=== PATIENT | male | born 1995 | race Caucasian/White ===

== ENCOUNTER 2018-08-24 19:00 | Observation (INO) | payer BC ==
[2018-08-24] MEDS ORDERED: ALUM & MAG HYDROX-SIMETHICONE 30 ML, LIDOCAINE VISCOUS 2% 15 ML PO ONE ×2 (19:23)
[2018-08-24] MEDS ORDERED: ASPIRIN TABLET 325 MG TAB PO ONE (19:23)
[2018-08-24] MEDS ORDERED: ALUM & MAG HYDROX-SIMETHICONE 30 ML UD ONE (19:24)
[2018-08-24] MEDS ORDERED: LIDOCAINE HCL 2% (MOUTH-THROAT) 15 ML UD ONE (19:24)
--- NOTE | 2018-08-24 19:36 | RAD ---
EXAM DESCRIPTION: Chest,2 Views CLINICAL HISTORY: left chest pain COMPARISON: None. FINDINGS: Two views of the chest are submitted. Cardiac silhouette appears normal. No focal parenchymal or pleural disease. No acute bony abnormality. There is no significant pulmonary vascular engorgement. IMPRESSION: No evidence of acute cardiopulmonary disease. Electronically signed by: Frank Purvis 08/24/2018 7:35 PM MUSIC LIBRARIAN
[2018-08-24] MEDS ORDERED: POTASSIUM CHLORIDE ELIXIR 20 MEQ/15 ML UD PO ONE (20:34)
[2018-08-24] MEDS ORDERED: ACETAMINOPHEN 325 MG TAB PO ONE (20:40)
[2018-08-24] MEDS ORDERED: SUCRALFATE 1 GM/10 ML 1 GM UD PO ONE (20:40)
[2018-08-24] MEDS ORDERED: NITROGLYCERIN 0.4 MG 25 EA TAB SL ONE (21:35)
--- NOTE | 2018-08-24 21:45 | ED.PDOC ---
History of Present Illness - General Chief Complaint: Chest Pain/OR Stated Complaint: tightness in chest Time Seen by Provider: 08/24/18 19:07 Source: patient Exam Limitations: no limitations - History of Present Illness Initial Comments: the patient's a 23-year-old male presenting to the emergency room secondary to some mild chest discomfort and tightness starting approximately 5 hours prior to arrival. 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 Nothing seems to make it better or worse. Movement does not affect it. Aerobic exertion does not affect it. Palpation is not affected. He has not had a runny nose, cough sore throat or fever. No history of any DVT and no swelling in his legs or pain in his legs. No history of any heart problems. No family history of any early heart issues. He does not use any drugs. He is pleasant and cooperative and does not really appear to be in much distress. Discomfort is a 3 or 4 at worst. No history of any bad heartburn issues. No new medications. No history of any thyroid problems. No history of any serious infections. No known history of any diabetes. Timing/Duration: 4-6 hours Severity: mild Improving Factors: nothing Worsening Factors: nothing Associated Symptoms: chest pain Allergies/Adverse Reactions: Allergies NO KNOWN ALLERGY Allergy (Verified 08/24/18 19:16) Home Medications: Ambulatory Orders NK [NK] 08/24/18 Review of Systems - Review of Systems Constitutional: States: no symptoms reported EENTM: States: no symptoms reported Respiratory: States: short of breath - very mild Cardiology: States: chest pain Gastrointestinal/Abdominal: States: no symptoms reported Genitourinary: States: no symptoms reported Musculoskeletal: States: no symptoms reported Skin: States: no symptoms reported Neurological: States: no symptoms reported Endocrine: States: no symptoms reported All other Systems: No Change from Baseline Past Medical History (General) - Patient Medical History Hx Diabetes: No Surgical History: no surgical history - Vaccination History Hx Influenza Vaccination: No - Triage Comment ED Triage Comment: Feels tightness in chest since around 2-3 this afternoon Family Medical History - Family History Father Family History: Unknown Physical Exam - Physical Exam General Appearance: Alert, Comfortable, No apparent distress Ears, Nose, Throat: hearing grossly normal, normal ENT inspection Neck: full range of motion, supple Respiratory: lungs clear, normal breath sounds, no respiratory distress, no accessory muscle use Cardiovascular/Chest: normal peripheral pulses, regular rate, rhythm, no edema Peripheral Pulses: radial,right: 2+, radial,left: 2+, dorsalis pedis,right: 2+, dorsalis pedis,left: 2+ Gastrointestinal/Abdominal: non tender, soft Rectal Exam: deferred Back Exam: normal inspection, no CVA tenderness, no vertebral tenderness Extremity: normal range of motion, non-tender, normal inspection, no pedal edema , no calf tenderness, normal capillary refill 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, alert, normal mood/affect, oriented x 3 Skin Exam: normal color Comments: Vital Signs - 24 hr 08/24/18 08/24/18 08/24/18 19:13 19:16 20:00 Temperature 98.5 F Pulse Rate [ 124 H 124 H 110 H Right] Respiratory 16 16 16 Rate Blood Pressure 139/90 126/94 [Left Arm] O2 Sat by Pulse 99 99 Oximetry 08/24/18 21:00 Temperature Pulse Rate [ 114 H Right] Respiratory 18 Rate Blood Pressure 122/73 [Left Arm] O2 Sat by Pulse 97 Oximetry Progress - Progress Progress: 08/24/18 21:47 the patient is a 23-year-old male presenting to the emergency room secondary to mild chest discomfort with mild associated shortness of breath. Laboratory work , EKG and chest x-ray are really only significant for mild hypokalemia and a moderate sinus tachycardia. it is unknown if the sinus tachycardia is a long- standing issue or not. The patient has been dosed with some potassium. He has been given GI medications. Symptoms have improved somewhat. Initial set of cardiac enzymes are negative. Initial d-dimer is negative. TSH is normal. The patient is going to receive a liter of IV fluids to see if this improves the sinus tachycardia. His blood sugar is mildly elevated and an A1c at a further lab draw may be warranted along possibly with an esr and maybe a repeat d-dimer. At this point in time I'm uncertain why he is having some chest discomfort and some sinus tachycardia. his age and lack of personal medical history or significant family history make coronary artery disease significantly less likely. Monitor overnight. A source may make itself evident. Repeat heart enzymes. The patient has received aspirin, GI medications and a dose of nitroglycerin, along with the potassium and IV fluids. - Results/Orders Results/Orders: chest x-ray shows no evidence of any acute pathology. No widening of the mediastinum. No pneumothorax. EKG shows sinus tachycardia rate of [address] segment or T-wave changes at the moment for ischemia. Normal axis. Normal R-wave progression. Telemetry monitoring has shown no evidence of any other arrhythmia. Laboratory Tests 08/24/18 08/24/18 08/24/18 19:22 19:38 19:38 WBC 10.0 RBC 5.36 Hgb 15.6 Hct 46.1 MCV 86.1 MCH 29.1 MCHC 33.9 RDW 13.6 Plt Count 196 MPV 10.1 Absolute Neuts (auto) 7.80 H Absolute Lymphs (auto) 1.30 Absolute Monos (auto) 0.80 Absolute Eos (auto) 0.10 Absolute Basos (auto) 0.00 Neutrophils % 78.2 H Lymphocytes % 13.1 L Monocytes % 7.7 Eosinophils % 0.5 L Basophils % 0.5 PT INR PTT (SP) D-Dimer, Quantitative Sodium 138 Potassium 3.3 L Chloride 102 Carbon Dioxide 28 Anion Gap 11.3 L BUN 15 Creatinine 0.96 BUN/Creatinine Ratio 15.6 Random Glucose 145 H Serum Osmolality 279.1 Calcium 9.3 Magnesium 2.0 Total Bilirubin 0.2 AST 21 ALT 29 Alkaline Phosphatase 98 Creatine Kinase 92 CK-MB (CK-2) 0.7 CK-MB (CK-2) % Not Reportable Troponin I < 0.02 B-Natriuretic Peptide < 5.0 Serum Total Protein 8.0 Albumin 4.6 Globulin 3.4 Albumin/Globulin Ratio 1.4 TSH 1.78 Urine Color Urine Appearance Urine pH Ur Specific [place] Urine Protein Urine Glucose (UA) Urine Ketones Urine Blood Urine Nitrite Urine Bilirubin Urine Urobilinogen Ur Leukocyte Esterase Urine RBC Urine WBC Ur Epithelial Cells Urine Bacteria Urine Opiates Screen Negative Urine Barbiturates Negative Ur Phencyclidine Scrn Negative U Amphetamin/Meth Scrn Negative U Benzodiazepines Scrn Negative U Cocaine Metab Screen Negative U Cannabinoids Screen Negative 08/24/18 08/24/18 19:38 20:51 WBC RBC Hgb Hct MCV MCH MCHC RDW Plt Count MPV Absolute Neuts (auto) Absolute Lymphs (auto) Absolute Monos (auto) Absolute Eos (auto) Absolute Basos (auto) Neutrophils % Lymphocytes % Monocytes % Eosinophils % Basophils % PT 10.4 INR 1.04 PTT (SP) 27.2 D-Dimer, Quantitative 0.19 Sodium Potassium Chloride Carbon Dioxide Anion Gap BUN Creatinine BUN/Creatinine Ratio Random Glucose Serum Osmolality Calcium Magnesium Total Bilirubin AST ALT Alkaline Phosphatase Creatine Kinase CK-MB (CK-2) CK-MB (CK-2) % Troponin I B-Natriuretic Peptide Serum Total Protein Albumin Globulin Albumin/Globulin Ratio TSH Urine Color Yellow Urine Appearance Clear Urine pH 7.0 Ur Specific [place] 1.010 Urine Protein Negative Urine Glucose (UA) Negative Urine Ketones Negative Urine Blood Negative Urine Nitrite Negative Urine Bilirubin Negative Urine Urobilinogen 0.2 Ur Leukocyte Esterase Negative Urine RBC 0 Urine WBC 0 Ur Epithelial Cells 0 Urine Bacteria 0 Urine Opiates Screen Urine Barbiturates Ur Phencyclidine Scrn U Amphetamin/Meth Scrn U Benzodiazepines Scrn U Cocaine Metab Screen U Cannabinoids Screen Departure - Departure Clinical Impression: Hypokalemia, Sinus tachycardia Chest pain Qualifiers: Chest pain type: unspecified Qualified Code(s): R07.9 - Chest pain, unspecified Disposition: Admit Patient Home Medications: Ambulatory Orders NK [NK] 08/24/18 Decision To Admit - Decistion To Admit Decision to Admit Reason: Medical Nature Decision to Admit Date: 08/24/18 Decision to Admit Time: 21:52
[2018-08-24] MEDS ORDERED: SODIUM CHLORIDE 0.9% 1000ML 1,000 ML IVS ONE (21:52)
[2018-08-24] MEDS ORDERED: MORPHINE SULFATE INJ 10 MG/ML VIAL IV PRN (22:26)
[2018-08-24] MEDS ORDERED: NITROGLYCERIN 0.4 MG 25 EA TAB SL PRN (22:26)
[2018-08-24] MEDS ORDERED: SODIUM CHLORIDE 0.9% (FLUSH) 10 ML SYG IV PRN (22:26)
[2018-08-24] MEDS ORDERED: ACETAMINOPHEN 325 MG TAB PO PRN (22:26)
[2018-08-24] MEDS ORDERED: IV SET AND CAP CHANGE INJ INJ SCH (22:30)
[2018-08-24] MEDS ORDERED: ENOXAPARIN SODIUM 40 MG/0.4 ML SYG SUBCU SCH (23:00)
[2018-08-25] MEDS ORDERED: PANTOPRAZOLE SODIUM TAB 40 MG PO SCH (06:30)
[2018-08-25] MEDS ORDERED: SODIUM CHLORIDE 0.9% (FLUSH) 10 ML SYG IV SCH (09:00)
[2018-08-25] MEDS ORDERED: ASPIRIN TABLET 325 MG TAB PO SCH (09:00)
[2018-08-25 09:38] VITALS: BP 128/73; TEMP 98.3; O2SAT 99
--- NOTE | 2018-08-25 14:23 | SSS ---
SUPERVISING PHYSICIAN: Bryce Earl MD DISCHARGE DIAGNOSIS: 1. Chest pain, rule out myocardial infarction. Negative cardiac enzymes and no changes on his EKG. 2. Tachycardia, which was transient in nature. HISTORY OF PRESENT ILLNESS: This is a 23-year-old male patient who approximately 5 hours before he came to the Emergency Room while he was at work had some substernal chest pain. There was nothing that seemed to make it better or worse. He had no complaints of palpitations or tachycardia. He has had no recent exposure to any infectious diseases. In the Emergency Room, his EKG showed no acute changes and his vital signs showed he was afebrile, blood pressure 139/90, respiratory rate 15, O2 saturation 99%. His heart rate ran between 112 and 124 beats per minute. He denied any history of tachycardia or heart problems. His lab studies showed normal WBC of 10 with hemoglobin 15.6 and hematocrit 46.1. Neutrophils were slightly elevated at 78.2%. Electrolytes showed sodium 138, potassium 3.3, chloride 102, carbon dioxide 28. Glucose 145. Cardiac enzymes were negative and TSH was 1.78. His second set of cardiac enzymes were also negative. I was called to place the patient in observation to watch his heart rate as well as to check serial cardiac enzymes. PAST MEDICAL HISTORY: None. PAST SURGICAL HISTORY: 1. Eye surgery as a child. OUTPATIENT MEDICATIONS: None. ALLERGIES: NO KNOWN DRUG ALLERGIES. SOCIAL HISTORY: He just recently moved to [place]. He is single. He denies any smoking, ETOH or illicit drug use. REVIEW OF SYSTEMS: GENERAL: Denies for fever, fatigue or weight changes. HEENT: Negative for sinus symptoms, ear pain, vision changes or sore throat. RESPIRATORY: Positive for some very mild shortness of breath while he had chest pain. At this time, he has none. Negative for wheezing, coughing. CARDIAC: Positive for chest pain. Negative for palpitations or tachycardia. GASTROINTESTINAL: Negative for nausea, vomiting, diarrhea, constipation or abdominal pain. GENITOURINARY: Negative for hematuria, dysuria or polyuria. SKIN: Negative for lesions or rashes. NEUROLOGIC: Negative for headache, dizziness or seizures. PHYSICAL EXAMINATION: VITAL SIGNS ON DISCHARGE: Temperature 98.4. Heart rate 91. Blood pressure 123 /71. Respiratory rate 18. O2 saturation 100% on room air. GENERAL: This is a 23-year-old male patient lying in his hospital bed. He is in no acute distress. HEENT: Normocephalic, atraumatic. Pupils are equal and reactive. Oropharynx is clear. NECK: Supple without mass. There is no jugular venous distention. RESPIRATORY: Essentially clear to auscultation bilaterally. CHEST: There is equal rise and fall of the chest with inspiration and expiration. CARDIOVASCULAR: Regular rate and rhythm. GASTROINTESTINAL: Abdomen is soft, nondistended, nontender. Bowel sounds are positive. EXTREMITIES: No cyanosis, clubbing or edema. NEUROLOGIC: Awake, alert and oriented times three. LABORATORY: His labs this morning show electrolytes basically within normal limits. Glucose was slightly elevated at 109. Hemoglobin A1c was 5.4. Serial cardiac enzymes are negative. CBC is basically within normal limits. Chest x- ray shows no acute cardiopulmonary processes. HOSPITAL COURSE: The patient had no further complaints of chest pain during his stay in the hospital. His heart rate stabilized and remained in the 80s and 90s. He has no further complaints of chest pain, nausea, vomiting, diarrhea or constipation. He will be discharged home in stable condition. DISCHARGE PLAN: The patient will be discharged home in stable condition. I have not sent him home on any medications. He does not have a primary care physician, so he will followup with Dr. Rox Earl at [facility] on 09/01/18 at 8:30 to establish care. He is to return to the hospital or followup with Dr. Earl's office for any further problems or complications. #[id number] [facility]
[2018-08-25] MEDS ORDERED: ENOXAPARIN SODIUM 40 MG/0.4 ML SYG SUBCU SCH (21:00)
== END 2018-08-25 11:50 | disposition home or self-care (01) ==
LOC: ER 19:00 → MS 22:07
PROVIDERS: ADMIT Nurse Practitioner Acute Care; ATTEND Nurse Practitioner Acute Care
DX: R07.89 Other chest pain (principal); R00.0 Tachycardia, unspecified; R06.02 Shortness of breath; E87.6 Hypokalemia; R73.9 Hyperglycemia, unspecified
CPT/HCPCS: 96372; J7030; J1650; 85379; 82553 ×3; 80053 ×2; 80307; 83036; 87804; 80061; 36415 ×3; 81001; 85025 ×2; 82550 ×3; 83735; 85730; 85610; 84443; 84484 ×3; 83880; 71046; 94760 ×2; 99285; 93005 ×3; G0378